=== PATIENT | female | born 1995 | race Caucasian/White ===

== ENCOUNTER 2024-06-16 15:34 | Emergency (ER) | payer MEDICAID ==
[2024-06-16 16:45] LABS: BILIRUBIN,URINE NEGATIVE (NEGATIVE); GLUCOSE, URINE (UA) NEGATIVE (NEGATIVE); KETONES,URINE (UA) NEGATIVE (NEGATIVE); LEUKOCYTE ESTERASE, URINE NEGATIVE (NEGATIVE); NITRITE,URINE NEGATIVE (NEGATIVE); OCCULT BLOOD,URINE SMALL (NEGATIVE); PROTEIN,URINE NEGATIVE (NEGATIVE); UROBILINOGEN,URINE 0.2 (NORMAL) E.U./dL (NORMAL)
[2024-06-16 16:47] LABS: CLARITY,URINE CLEAR (CLEAR); HCG UR QUAL NEGATIVE
--- NOTE | 2024-06-16 17:35 | ED Physician Documentation ---
PD HPI FEMALE - Stated complaint Stated Complaint: - Chief complaint Chief Complaint: Abd Pain - Additional information Additional information: 28-year-old female presents emergency department for scant vaginal bleeding and concerns of IUD malplacement. Patient says that she has had her IUD for 5 years she has had no complications with that she recently has a new partner she is having intercourse with and says that she has been having more painful intercourse and is worried that the IUD is coming out. She does state that she has a history of chlamydia x 2 as well as hep C but has completed treatment for both of these things. She has no odorous vaginal discharge no vaginal itching she does not use protection with her new partner she says that her partner states that he does not have current STDs that she is aware of. No dysuria no urinary urgency or frequency no flank pain or tenderness. Patient says that she is very routine about getting her menses on the eighth of every month but she has been noticing lately that she has been having some very scant vaginal spotting in between menses. PD PAST MEDICAL HISTORY - Past Medical History Past Medical History: No - Past Surgical History Past Surgical History: Yes General: Bowel surgery - Present Medications Home Medications: Ambulatory Orders Medication Instructions Recorded Confirmed metroNIDAZOLE [Flagyl] 500 mg PO BID 7 Days #14 tablet 06/17/24 - Allergies Allergies/Adverse Reactions: Allergies Allergy/AdvReac Type Severity Reaction Status Date / Time Penicillins Allergy Rash Verified 06/16/24 15:56 - Social History Does the pt smoke?: No Smoking Status: Never smoker Does the pt drink ETOH?: No Does the pt have substance abuse?: No - Immunizations Immunizations are current?: Yes - POLST Patient has POLST: No PD ED PE NORMAL - Vitals Vital signs reviewed: Yes - General General: Alert and oriented X 3, No acute distress, Well developed/nourished - Abdomen Abdomen: Normal bowel sounds, Soft, Non tender, Non distended, No organomegaly - Back Back: No CVA TTP - Derm Derm: Normal color, Warm and dry, No rash Results - Vitals Vitals: Vital Signs - 24 hr 06/16/24 06/16/24 15:48 19:14 Temperature 36.5 C Heart Rate 66 65 Respiratory 18 18 Rate Blood Pressure 117/78 135/82 H O2 Saturation 99 98 Oxygen O2 Source Room air - Labs Labs: Laboratory Tests 06/16/24 06/16/24 06/16/24 16:00 18:05 18:05 Urine Color YELLOW Urine Clarity CLEAR Urine pH 8.0 H Ur Specific [place] 1.015 Urine Protein NEGATIVE Urine Glucose (UA) NEGATIVE Urine Ketones NEGATIVE Urine Occult Blood SMALL H Urine Nitrite NEGATIVE Urine Bilirubin NEGATIVE Urine Urobilinogen 0.2 (NORMAL) Ur Leukocyte Esterase NEGATIVE Urine HCG, Qual NEGATIVE C. glabrata (PCR) NEGATIVE C. krusei (PCR) NEGATIVE Yuliya species DNA NEGATIVE Chlam trachomat DNA PCR NEGATIVE N.gonorrhoeae DNA (PCR) NEGATIVE T. vaginalis (PCR) NEGATIVE NEGATIVE Bact Vaginosis (PCR) POSITIVE A - Rads (name of study) pelvic US Relevant Findings:: Final report received, EMP independent interpretation of test, Other (IUD in appropriate location, 2cm cyst to left ovary) PD Medical Decision Making - ED course ED course: 28-year-old female presents emergency department for pain with intercourse and concerns of IUD malplacement as well as scant vaginal bleeding in between menses. Ultrasound was complete for further evaluation and IUD appears to be in appropriate location. Urinalysis was also complete for possible UTI and she does not appear to have leukocytes or nitrites making less suspicious about a possible UTI., hCG negative making me less worried about a possible ectopic . Vaginal swab was also complete for further evaluation of STIs or bacterial vaginosis and she appears to be positive for bacterial vaginosis. I called the patient updated her of these results and sent a prescription of Flagyl to her preferred pharmacy she is told to pick this up today and start today and follow-up with her primary care provider for further evaluation. All questions answered return precautions given patient safe for discharge at this time. Departure - Departure Disposition: 01 Home, Self Care Clinical Impression: Vaginal spotting, Ovarian cyst, Bacterial vaginosis Instructions: Cysts Ovarian Prescriptions: metroNIDAZOLE [Flagyl] 500 mg PO BID 7 Days #14 tablet Comments: Thank you for trusting us with your care it appears that you have a small 2 cm cyst on your right ovary. You can follow-up with your primary care provider to have this to be imaged in about 6 months for further evaluation. Your urine does not show any signs of urinary tract infection I will call you with your STD results if anything comes back positive, if you do not hear from me you can assume that you do not have any STDs. PT NAME: ELY MCMAHON MR#: [id number] REG ER/ED AGE: 28 CI DT/TM: 06/16/24 PCP: : 1995 ATT: SEX: F ORD: Emily Munson ENGINEERING AIDE EXAM: US/PELDOPL PROCEDURE: Pelvic w/Doppler Limited INDICATIONS: IUD placement and vaginal bleeding TECHNIQUE: Real-time transabdominal scanning was performed of the pelvic organs, with image documentation. Doppler interrogation was performed of the ovaries bilaterally. COMPARISON: None. FINDINGS: Uterus: Uterus is anteverted and normal in size at 7.6 x 4.7 x 5.6 cm. The myometrium is homogeneous. The endometrium measures 8.4 mm in combined thickness. IUD is in appropriate loca tion. Ovaries: The right ovary measures 3.8 x 3.6 x 2.8 cm, with a calculated ovarian volume of 20.2 cc. The left ovary measures 3.4 x 3.0 x 2.9 cm, with a calculated ovarian volume of 15.6 cc. A ppropriate blood flow to the ovaries with Doppler interrogation. Simple cyst me asuring 2 cm is present within the right ovary. Other: No pathologic free abdominal or pelvic fluid. IMPRESSION: IUD in appropriate location. 2 cm simple right ovarian cyst. Forms: PCP List Discharge Date/Time: 06/16/24 19:14
--- NOTE | 2024-06-16 18:46 | Ultrasound Report ---
PROCEDURE: Pelvic w/Doppler Limited INDICATIONS: IUD placement and vaginal bleeding TECHNIQUE: Real-time transabdominal scanning was performed of the pelvic organs, with image documentation. Dopp ler interrogation was performed of the ovaries bilaterally. COMPARISON: None. FINDINGS: Uterus: Uterus is anteverted and normal in size at 7.6 x 4.7 x 5.6 cm. The myometrium is homogeneou s. The endometrium measures 8.4 mm in combined thickness. IUD is in appropriate location. Ovaries: The right ovary measures 3.8 x 3.6 x 2.8 cm, with a calculated ovarian volume of 20.2 cc. The left ovary measures 3.4 x 3.0 x 2.9 cm, with a calculated ovarian volume of 15.6 cc. Appropriate blood flow to the ovaries with Doppler interrogation. Simple cyst measuring 2 cm is present within the right ovary. Other: No pathologic free abdominal or pelvic fluid. IMPRESSION: IUD in appropriate location. 2 cm simple right ovarian cyst. Reviewed by: Luann Fuller MD on 06/16/2024 6:44 PM PDT Approved by: Luann Fuller MD on 06/16/2024 6:44 PM PDT Station ID: [id number]
[2024-06-16 19:19] VITALS: BP 135/82; O2SAT 98
[2024-06-16 20:26] LABS: BACTERIAL VAGINOSIS DNA POSITIVE (NEGATIVE); CANDIDA GLABRATA DNA NEGATIVE (NEGATIVE); CANDIDA GROUP DNA NEGATIVE (NEGATIVE); CANDIDA KRUSEI DNA NEGATIVE (NEGATIVE); TRICHOMONAS VAGINALIS DNA NEGATIVE (NEGATIVE)
[2024-06-16 22:04] LABS: CHLAMYDIA TRACHOMATIS DNA NEGATIVE (NEGATIVE); NEISSERIA GONORRHOEAE DNA NEGATIVE (NEGATIVE); TRICHOMONAS VAGINALIS DNA NEGATIVE (NEGATIVE)
== END 2024-06-16 19:14 | disposition home or self-care (01) ==
LOC: ED 15:34
DX: N76.0 Acute vaginitis (principal); B96.89 Other specified bacterial agents as the cause of diseases classified elsewhere; N93.9 Abnormal uterine and vaginal bleeding, unspecified; N83.201 Unspecified ovarian cyst, right side
CPT/HCPCS: 81003; 81025; 81514; 87491; 87591; 87661; 93976; 99284